=== PATIENT | male | born 1945 | race Caucasian/White ===

== ENCOUNTER → 2025-04-23 10:26 | Outpatient (CLI) | payer OTHER, SELFPAY ==
--- NOTE | 2025-04-23 10:29 | DI.US.S_ITS ---
PROCEDURE: US RENAL COMPLETE INDICATIONS: Chronic kidney disease Stage 3A TECHNIQUE: Real-time scanning was performed of the kidneys and bladder, with image documentation. COMPARISON: None. FINDINGS: Kidneys: Part of the right kidney measures 11.6 cm. There is increased cortical echogenicity. There is a large cyst in the upper pole measuring 8 x 7.8 cm. There is no significant cortical thinning. The left kidney measures 10 cm. Increased cortical echogenicity. There is borderline cortical thinning. No hydronephrosis or suspicious focal lesion seen. The prostate measures 4.5 x 3.6 x 3.8 cm. Volume of 32 cc. Bladder: Pre-void bladder volume is 68 mL. Post-void residual is 53 mL. Pre- void images demonstrate no intraluminal masses or stones. On pre-void images, bilateral ureteral jets are noted with color Doppler interrogation. (Of note, ureteral jets may not be detectable in up to 25% of cases due to insufficient differences in specific gravity between ureteral and bladder urine). Miscellaneous: No free pelvic fluid. IMPRESSION: 1. Borderline size of the left kidney with normal size of the left kidney. Abnormal cortical echogenicity bilaterally, suggestive of underlying chronic parenchymal disease. Borderline cortical thinning on the left 2. No hydronephrosis or suspicious focal lesion seen. 3. Moderate postvoid bladder residual of 53 cc. Dictated by: Osmani Liz M.D. on 04/23/2025 at 17:04 Approved by: Osmani Liz M.D. on 04/23/2025 at 17:07
== END ==
DX: N18.31 Chronic kidney disease, stage 3a (principal); N28.1 Cyst of kidney, acquired
CPT/HCPCS: 76770